=== PATIENT | female | born 1995 | race Caucasian/White ===

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

== ENCOUNTER 2017-01-22 20:39 | Inpatient (IN) | payer MEDICAID ==
[2017-01-22 21:26] LABS: ROM Internal QC QC Line Present
[2017-01-22 21:56] LABS: Hematocrit 33 % (35-47); Hemoglobin 11.3 g/dl (12.0-16.0); Mean Corpuscular HGB Conc 34 g/dl (31-36); Mean Corpuscular Hemoglobin 29 pg (27-31); Mean Corpuscular Volume 83 fL (80-97); Mean Platelet Volume 10 um3 (7.4-10.4); Red Blood Count 3.98 10^6/ul (4.0-5.4); Red Cell Distribution Width 14 % (10.5-15); White Blood Count 15.4 10^3/ul (3.5-10.8)
[2017-01-22] MEDS ORDERED: Nalbuphine* 20 MG/ML 1 ML VIAL IV PRN (23:53)
[2017-01-22] MEDS ORDERED: Nalbuphine* 20 MG/ML 1 ML VIAL ONE (23:53)
[2017-01-22] MEDS ORDERED: Promethazine INJ(RESTRICTED)* 25 MG/ML 1 ML VIAL ONE (23:56)
[2017-01-22] MEDS ORDERED: Promethazine INJ(RESTRICTED)* 25 MG/ML 1 ML VIAL IV PRN (23:56)
[2017-01-23] MEDS ORDERED: OBEPIDURAL* 250 ML ONE (05:19)
[2017-01-23] MEDS ORDERED: Phenylephrine IV* 40 MCG/ML 10 ML SYRINGE IV PUSH PRN ×2 (10:03)
[2017-01-23] MEDS ORDERED: Sodium Citrate/Citric Acid* 15 ML UDC PO PRN (10:03)
[2017-01-23] MEDS ORDERED: Famotidine TAB* 20 MG PO PRN (10:03)
[2017-01-23] MEDS ORDERED: Oxytocin in LR* 20 UNITS/1,000 ML BAG IVPB SCH ×2 (10:05→15:00)
[2017-01-23] MEDS ORDERED: OBEPIDURAL* 250 ML EPIDURAL SCH (11:00)
[2017-01-23] MEDS ORDERED: Witch Hazel PAD* JAR TOPICAL PRN (14:25)
[2017-01-23] MEDS ORDERED: Acetaminophen TAB* 325 MG PO PRN (14:25)
[2017-01-23] MEDS ORDERED: Glycerin ADULT SUPP PR PRN (14:25)
[2017-01-23] MEDS ORDERED: Dibucaine 1% 28.35 GM TUBE PR PRN (14:25)
[2017-01-23] MEDS ORDERED: oxyCODONE/Acetamin 5/325 MG* TAB PO PRN (14:25)
[2017-01-23] MEDS: Ibuprofen TAB* 600 MG PO PRN (16:04)
[2017-01-23] MEDS: Docusate CAP* 100 MG PO SCH (19:57)
[2017-01-23] MEDS: Simethicone CHEW TAB* 80 MG PO SCH (21:14)
[2017-01-24] MEDS: Ibuprofen TAB* 600 MG PO PRN ×2 (07:39→14:30)
[2017-01-24] MEDS: Docusate CAP* 100 MG PO SCH ×3 (07:39→21:01)
[2017-01-24 08:16] LABS: Hematocrit 25 % (35-47); Hemoglobin 8.5 g/dl (12.0-16.0); Mean Corpuscular HGB Conc 33 g/dl (31-36); Mean Corpuscular Hemoglobin 28 pg (27-31); Mean Corpuscular Volume 84 fL (80-97); Mean Platelet Volume 10 um3 (7.4-10.4); Red Blood Count 3.03 10^6/ul (4.0-5.4); Red Cell Distribution Width 14 % (10.5-15); White Blood Count 16.7 10^3/ul (3.5-10.8)
[2017-01-24] MEDS ORDERED: Measles, Mumps,Rubella VACC* 0.5 ML/VIAL SUBCUT ONE (09:00)
[2017-01-24] MEDS ORDERED: Varicella Virus Vaccine Live* 0.5 ML VIAL SUBCUT ONE (09:00)
[2017-01-24] MEDS: Ferrous Gluconate TAB* 324 MG TAB PO SCH ×2 (11:40→21:01)
[2017-01-25] MEDS: Ferrous Gluconate TAB* 324 MG TAB PO SCH (08:27)
[2017-01-25] MEDS: Docusate CAP* 100 MG PO SCH (08:27)
[2017-01-25] MEDS: Ibuprofen TAB* 600 MG PO PRN (08:27)
--- NOTE | 2017-01-25 09:00 | PTEDU ---
Patient Name: CHIARA VELÁSQUEZ VELÁSQUEZ, CHIARA selected video: BBOB: Bonding Through Massage to view on 01/25/2017 at 9:00:01 AM from [id number]
[2017-01-25 09:31] VITALS: BP 140/78
--- NOTE | 2017-01-25 09:49 | PTEDU ---
Patient Name: CHIARA VELÁSQUEZ CHIARA VELÁSQUEZ selected video: Never Ever Shake a Baby to view on 01/25/2017 at 9:48:19 AM from [facility] [id number]
--- NOTE | 2017-01-25 09:58 | PTEDU ---
Patient Name: CHIARA VELÁSQUEZ CHIARA VELÁSQUEZ selected video: BBOB: Nurturing Your Gorgeous \T\Growing Baby by to view on 01/25/2017 at 9:58:35 AM [id number]
== END 2017-01-25 12:40 | disposition home or self-care (01) | DRG 560 ==
LOC: MCHOBOUT 20:39 → MCHOB 21:35
PROVIDERS: ADMIT Midwife; ATTEND Midwife
PROC: 10E0XZZ Delivery of Products of Conception, External Approach (ICD-10-PCS; principal; 2017-01-23)
PROC: 0HQ9XZZ Repair Perineum Skin, External Approach (ICD-10-PCS; 2017-01-23)
DX: O99.824 Streptococcus B carrier state complicating childbirth (principal); D64.9 Anemia, unspecified; O70.0 First degree perineal laceration during delivery; O69.9XX0 Labor and delivery complicated by cord complication, unspecified, not applicable or unspecified; O90.81 Anemia of the puerperium; Z3A.38 38 weeks gestation of pregnancy; Z37.0 Single live birth
CPT/HCPCS: 36415; 84112; 85025; 86850; 86900; 86901; A9270-GY; J2300; J2550

== ENCOUNTER 2017-05-01 00:17 | Emergency (ER) | payer OTHER ==
--- NOTE | 2017-05-01 02:26 | ED ---
Upper Extremity Pain - HPI Summary HPI Summary: 21F presents with left wrist pain for two weeks. She states that she is left handed. It is worst with flexion. She states that she gets pain that limits her ROM. She denies any injury. no numbness or tingling. She has tried ibuprofen without relief. She lifts alot of things at work. - History of Current Complaint Chief Complaint: EDExtremityUpper Stated Complaint: LT WRIST PAIN Time Seen by Provider: 05/01/17 01:10 Hx Last Menstrual Period: 03/06/14 - Allergies/Home Medications Allergies/Adverse Reactions: Allergies Allergy/AdvReac Type Severity Reaction Status Date / Time Latex Allergy Intermediate Rash Verified 11/27/16 07:05 PMH/Surg Hx/FS Hx/Imm Hx Endocrine/Hematology History: Denies: Hx Diabetes, Hx Systemic Lupus Erythematosus, Hx Thyroid Disease Cardiovascular History: Denies: Hx Congestive Heart Failure, Hx Hypertension Respiratory History: Denies: Hx Asthma, Hx Chronic Obstructive Pulmonary Disease (COPD) GI History: Denies: Hx Ulcer History: Denies: Hx Dialysis, Hx Renal Disease Musculoskeletal History: Denies: Hx Rheumatoid Arthritis Sensory History: Reports: Hx Contacts or Glasses Opthamlomology History: Reports: Hx Contacts or Glasses Psychiatric History: Reports: Hx Anxiety, Hx Depression, Hx Post Traumatic Stress Disorder, Hx Community Mental Health Tx Denies: Hx Eating Disorder, Hx of Violent Episodes Against Others, Hx Substance Abuse - Cancer History Hx Chemotherapy: No Infectious Disease History: No Infectious Disease History: Denies: Hx Clostridium Difficile, Hx Hepatitis, Hx Human Immunodeficiency Virus (HIV), Hx of Known/Suspected MRSA, Hx Tuberculosis, Hx Known/Suspected VRE , Hx Known/Suspected VRSA, History Other Infectious Disease, Traveled Outside the [place] in Last 30 Days - Family History Known Family History: Negative: Cardiac Disease - Social History Alcohol Use: None Substance Use Type: Reports: None Smoking Status (MU): Never Smoked Tobacco Review of Systems Negative: Fever Negative: Chest Pain Negative: Shortness Of Breath Positive: Myalgia - left wrist pain All Other Systems Reviewed And Are Negative: Yes Physical Exam Triage Information Reviewed: Yes Vital Signs On Initial Exam: Initial Vitals Temp Pulse Resp BP Pulse Ox 97.5 F 112 16 135/70 100 05/01/17 00:28 05/01/17 00:28 05/01/17 00:28 05/01/17 00:28 05/01/17 00:28 Vital Signs Reviewed: Yes Appearance: Positive: Well-Appearing Skin: Positive: Warm, Dry Head/Face: Positive: Normal Head/Face Inspection Eyes: Positive: Normal, Conjunctiva Clear Respiratory/Lung Sounds: Positive: Clear to Auscultation, Breath Sounds Present Cardiovascular: Positive: Normal, RRR Musculoskeletal: Positive: Strength/ROM Intact - left wrist with pain, Other - good pulses, capillary refill< 2 secs, no edema Diagnostics - Vital Signs Vital Signs Temp Pulse Resp BP Pulse Ox 05/01/17 01:27 97.7 F 89 16 123/64 100 05/01/17 00:28 97.5 F 112 16 135/70 100 - Laboratory Lab Statement: Any lab studies that have been ordered have been reviewed, and results considered in the medical decision making process. - Radiology hand Xray Interpretation: No Acute Changes Radiology Interpretation Completed By: ED Physician Course/Dx - Course Course Of Treatment: 21F presents with left wrist pain for two weeks. She states that she is left handed. It is worst with flexion. She states that she gets pain that limits her ROM. She denies any injury. no numbness or tingling. She has tried ibuprofen without relief. has full ROM on exam. neurovascular intact. xray normal. tried splint but patient says that feels more uncomfortable so placed in ALEX. told to treat with RICE as likely sprain. patient understands and agrees with plan - Diagnoses Differential Diagnosis/HQI/PQRI: Positive: Fracture (Closed), Strain, Sprain Provider Diagnoses: Wrist pain Discharge - Discharge Plan Condition: Good Disposition: HOME Patient Education Materials: Wrist Sprain (ED) Referrals: Madelaine Martin NP [Primary Care Provider] - Additional Instructions: Take ibuprofen every 6 hours as needed for pain Apply ice, rest, elevate Follow up with primary care physician within 5 days Return to ED if develop any new or worsening symptoms
[2017-05-01 03:11] VITALS: BP 117/59
--- NOTE | 2017-05-01 07:57 | RAD ---
INDICATION: Left wrist pain. TECHNIQUE: 3 views of the left wrist were obtained. FINDINGS: There is ulnar minus variance of approximately 4 mm. The bones are otherwise in normal alignment. No fracture is seen. Joint spaces appear maintained. IMPRESSION: NO EVIDENCE FOR FRACTURE.
== END 2017-05-01 02:45 | disposition home or self-care (01) ==
LOC: ED 00:17
DX: M25.532 Pain in left wrist (principal)
CPT/HCPCS: 99282

== ENCOUNTER 2017-08-19 19:35 | Emergency (ER) | payer OTHER ==
--- NOTE | 2017-08-19 21:40 | RAD ---
INDICATION: Cough and shortness of breath COMPARISON: None TECHNIQUE: PA and lateral views of the chest were obtained. FINDINGS: The heart and mediastinum are normal in size and contour. The lungs are grossly clear. There is no evidence of large pleural effusion. Visualized bones are normal for the patient's age. There is no radiographic evidence of free air beneath the diaphragm IMPRESSION: No radiographic evidence of acute cardiopulmonary disease.
[2017-08-19 22:12] LABS: Hematocrit 40 % (35-47); Hemoglobin 13.6 g/dl (12.0-16.0); Mean Corpuscular HGB Conc 34 g/dl (31-36); Mean Corpuscular Hemoglobin 29 pg (27-31); Mean Corpuscular Volume 85 fL (80-97); Mean Platelet Volume 8 um3 (7.4-10.4); Red Blood Count 4.69 10^6/ul (4.0-5.4); Red Cell Distribution Width 12 % (10.5-15); White Blood Count 12.7 10^3/ul (3.5-10.8)
[2017-08-19 22:27] LABS: ALT 54 U/L (7-52); AST 24 U/L (13-39); Albumin 4.6 g/dL (3.2-5.2); Alkaline Phosphatase 64 U/L (34-104); Anion Gap 7 mmol/L (2-11); BUN/Creatinine Ratio 25.4 (8-20); Blood Urea Nitrogen 17 mg/dL (6-24); C Reactive Protein 1.15 mg/L (< 5.00); CO2 Carbon Dioxide 24 mmol/L (22-32); Chloride 105 mmol/L (101-111); EGFR African American 145.8 (>60); EGFR Non-African American 113.4 (>60); Glucose 97 mg/dL (70-100); Potassium 3.8 mmol/L (3.5-5.0); Sodium 136 mmol/L (133-145); Total Protein 7.6 g/dL (6.4-8.9)
[2017-08-19 22:40] VITALS: BP 109/61
--- NOTE | 2017-08-20 13:18 | ED ---
Dior Jamison Thomas, scribed for Daniel Miles MD on 08/19/17 at 2130 . HPI Chest Pain - HPI Summary HPI Summary: This patient is a 21 year old F presenting to [facility] accompanied by a male with a chief complaints of shortness of breath and chest tightness since two hours ago. Symptoms aggravated by nothing. Symptoms alleviated by nothing. Yesterday, the patient reported headaches, vomiting, and nausea that were waxing and waning. The patient was put on a beta neto this morning. The patient usually has sharp migraines that radiate throughout her head and to her eyes. Patient reports palpitations. Patient denies leg swelling. She says that she visited a city three [place] away on . The patient is a current smoker. She is taking Mirena. - History of Current Complaint Chief Complaint: EDShortnessOfBreath Time Seen by Provider: 08/19/17 20:32 Hx Obtained From: Patient Onset/Duration: Started Hours Ago - 2, Still Present Timing: Constant Pain Intensity: 0 Pain Scale Used: 0-10 Numeric Character: Tightness Aggravating Factor(s): Nothing Alleviating Factor(s): Nothing Associated Signs and Symptoms: Positive: Other: - Chest tightness, SOB, heart palpitations; NEGATIVE: leg swelling - Allergy/Home Medications Allergies/Adverse Reactions: Allergies Allergy/AdvReac Type Severity Reaction Status Date / Time Latex Allergy Intermediate Rash Verified 11/27/16 07:05 PMH/Surg Hx/FS Hx/Imm Hx Previously Healthy: No Endocrine/Hematology History: Denies: Hx Diabetes, Hx Systemic Lupus Erythematosus, Hx Thyroid Disease Cardiovascular History: Denies: Hx Congestive Heart Failure, Hx Hypertension Respiratory History: Denies: Hx Asthma, Hx Chronic Obstructive Pulmonary Disease (COPD) GI History: Denies: Hx Ulcer History: Denies: Hx Dialysis, Hx Renal Disease Musculoskeletal History: Denies: Hx Rheumatoid Arthritis Sensory History: Reports: Hx Contacts or Glasses Opthamlomology History: Reports: Hx Contacts or Glasses Psychiatric History: Reports: Hx Anxiety, Hx Depression, Hx Post Traumatic Stress Disorder, Hx Community Mental Health Tx Denies: Hx Eating Disorder, Hx of Violent Episodes Against Others, Hx Substance Abuse - Cancer History Hx Chemotherapy: No Infectious Disease History: No Infectious Disease History: Denies: Hx Clostridium Difficile, Hx Hepatitis, Hx Human Immunodeficiency Virus (HIV), Hx of Known/Suspected MRSA, Hx Tuberculosis, Hx Known/Suspected VRE , Hx Known/Suspected VRSA, History Other Infectious Disease, Traveled Outside the [place] in Last 30 Days - Family History Known Family History: Positive: Other - Cancer Negative: Cardiac Disease - Social History Alcohol Use: None Hx Substance Use: No Substance Use Type: Reports: None Hx Tobacco Use: Yes Smoking Status (MU): Light Every Day Tobacco Smoker Review of Systems Negative: Fever Positive: Palpitations, Chest Pain Positive: Shortness Of Breath Negative: Edema All Other Systems Reviewed And Are Negative: Yes Physical Exam - Summary Physical Exam Summary: Appearance: The patient is well-nourished in no acute distress and in no acute pain. Skin: The skin is warm and dry and skin color reflects adequate perfusion. HEENT: The head is normocephalic and atraumatic. The pupils are equal and reactive. The conjunctivae are clear and without drainage. Nares are patent and without drainage. Mouth reveals moist mucous membranes and the throat is without erythema and exudate. The external ears are intact. The ear canals are patent and without drainage. The tympanic membranes are intact. Neck: the neck is supple with full range of motion and non-tender. There are no carotid bruits. There is no neck vein distension. Respiratory: Chest is non-tender. Lungs are clear to auscultation and breath sounds are symmetrical and equal. Cardiovascular: Heart is regular rate and rhythm. There is no murmur or rub auscultated. There is no peripheral edema and pulses are symmetrical and equal. Abdomen: The abdomen is soft and non-tender. There are normal bowel sounds heard in all four quadrants and there is no organomegaly palpated. Musculoskeletal: There is no back tenderness noted. Extremities are non-tender with full range of motion. There is good capillary refill. There is no peripheral edema or calf tenderness elicited. Neurological: Patient is alert and oriented to person, place and time. The patient has symmetrical motor strength in all four extremities. Cranial nerves are grossly intact. Deep tendon reflexes are symmetrical and equal in all four extremities. Psychiatric: The patient has an appropriate affect and does not exhibit any depression. She is anxious. Triage Information Reviewed: Yes Vital Signs On Initial Exam: Initial Vitals Temp Pulse Resp BP Pulse Ox 98.8 F 94 18 121/67 99 08/19/17 19:48 08/19/17 19:48 08/19/17 19:48 08/19/17 19:48 08/19/17 19:48 Vital Signs Reviewed: Yes - Zena Coma Scale Coma Scale Total: 15 Diagnostics - Vital Signs Vital Signs Temp Pulse Resp BP Pulse Ox 08/19/17 20:42 71 100 08/19/17 20:40 116/67 08/19/17 19:48 98.8 F 94 18 121/67 99 - Laboratory Lab Results: Lab Results 08/19/17 08/19/17 08/19/17 Range/Units 22:05 22:05 22:05 WBC 12.7 H (3.5-10.8) 10^3/ul RBC 4.69 (4.0-5.4) 10^6/ul Hgb 13.6 (12.0-16.0) g/dl Hct 40 (35-47) % MCV 85 (80-97) fL MCH 29 (27-31) pg MCHC 34 (31-36) g/dl RDW 12 (10.5-15) % Plt Count 308 (150-450) 10^3/ul MPV 8 (7.4-10.4) um3 Neut % (Auto) 62.4 (38-83) % Lymph % (Auto) 24.5 L (25-47) % [place] % (Auto) 7.2 (1-9) % Eos % (Auto) 5.2 (0-6) % Baso % (Auto) 0.7 (0-2) % Absolute Neuts (auto) 7.9 H (1.5-7.7) 10^3/ul Absolute Lymphs (auto) 3.1 (1.0-4.8) 10^3/ul Absolute Monos (auto) 0.9 H (0-0.8) 10^3/ul Absolute Eos (auto) 0.7 H (0-0.6) 10^3/ul Absolute Basos (auto) 0.1 (0-0.2) 10^3/ul Absolute Nucleated RBC 0 10^3/ul Nucleated RBC % 0 D-Dimer, Quantitative (Less Than 230) ng/mL Sodium 136 (133-145) mmol/L Potassium 3.8 (3.5-5.0) mmol/L Chloride 105 (101-111) mmol/L Carbon Dioxide 24 (22-32) mmol/L Anion Gap 7 (2-11) mmol/L BUN 17 (6-24) mg/dL Creatinine 0.67 (0.51-0.95) mg/dL Est GFR ( Amer) 145.8 (>60) Est GFR (Non-Af Amer) 113.4 (>60) BUN/Creatinine Ratio 25.4 H (8-20) Glucose 97 (70-100) mg/dL Lactic Acid 1.0 (0.5-2.0) mmol/L Calcium 10.0 (8.6-10.3) mg/dL Total Bilirubin 0.30 (0.2-1.0) mg/dL AST 24 (13-39) U/L ALT 54 H (7-52) U/L Alkaline Phosphatase 64 (34-104) U/L Troponin I 0.00 (<0.04) ng/mL C-Reactive Protein 1.15 (< 5.00) mg/L Total Protein 7.6 (6.4-8.9) g/dL Albumin 4.6 (3.2-5.2) g/dL Globulin 3.0 (2-4) g/dL Albumin/Globulin Ratio 1.5 (1-3) Beta HCG, Quant < 0.60 mIU/mL /18/17 Range/Units 22:05 WBC (3.5-10.8) 10^3/ul RBC (4.0-5.4) 10^6/ul Hgb (12.0-16.0) g/dl Hct (35-47) % MCV (80-97) fL MCH (27-31) pg MCHC (31-36) g/dl RDW (10.5-15) % Plt Count (150-450) 10^3/ul MPV (7.4-10.4) um3 Neut % (Auto) (38-83) % Lymph % (Auto) (25-47) % [place] % (Auto) (1-9) % Eos % (Auto) (0-6) % Baso % (Auto) (0-2) % Absolute Neuts (auto) (1.5-7.7) 10^3/ul Absolute Lymphs (auto) (1.0-4.8) 10^3/ul Absolute Monos (auto) (0-0.8) 10^3/ul Absolute Eos (auto) (0-0.6) 10^3/ul Absolute Basos (auto) (0-0.2) 10^3/ul Absolute Nucleated RBC 10^3/ul Nucleated RBC % D-Dimer, Quantitative < 200 (Less Than 230) ng/mL Sodium (133-145) mmol/L Potassium (3.5-5.0) mmol/L Chloride (101-111) mmol/L Carbon Dioxide (22-32) mmol/L Anion Gap (2-11) mmol/L BUN (6-24) mg/dL Creatinine (0.51-0.95) mg/dL Est GFR ( Amer) (>60) Est GFR (Non-Af Amer) (>60) BUN/Creatinine Ratio (8-20) Glucose (70-100) mg/dL Lactic Acid (0.5-2.0) mmol/L Calcium (8.6-10.3) mg/dL Total Bilirubin (0.2-1.0) mg/dL AST (13-39) U/L ALT (7-52) U/L Alkaline Phosphatase (34-104) U/L Troponin I (<0.04) ng/mL C-Reactive Protein (< 5.00) mg/L Total Protein (6.4-8.9) g/dL Albumin (3.2-5.2) g/dL Globulin (2-4) g/dL Albumin/Globulin Ratio (1-3) Beta HCG, Quant mIU/mL Result Diagrams: 08/19/17 22:05 08/19/17 22:05 Lab Statement: Any lab studies that have been ordered have been reviewed, and results considered in the medical decision making process. - Radiology CXR Radiology Interpretation Completed By: Radiologist - No radiographic evidence of acute cardiopulmonary disease. ED physician has reviewed this report and agrees. - EKG 21:39 Cardiac Rate: NL EKG Interpretation: 80 BPM. Nml EKG. Sinus arrhythmia. Chest Pain Course/Dx - Course Course Of Treatment: Ms. Cervantes presented C/O some difficulty breathing and chest tightness after beiing started on a beta neto. It is unclear why she was started although she says she has a history of untreated migraines and has daily HAs and that may be why. She had no wheezing and normal vitals. I recommended if she continue with symptoms, she should talk to her PMD as the beta neto may be causing some mild bronchospasm. I'm not sure why she was prescribed it so I didn't recommend stopping it outright. - Diagnoses Provider Diagnoses: Dyspnea Discharge - Discharge Plan Condition: Stable Disposition: HOME Patient Education Materials: Dyspnea (ED) Forms: *Work Release Referrals: Madelaine Martin NP [Primary Care Provider] - 3 Days Additional Instructions: Follow up with your primary care provider in 3 days. Return to the emergency department for any new or worsening symptoms. The documentation as recorded by the Dior chaves Thomas accurately reflects the service I personally performed and the decisions made by me, Daniel Miles MD.
== END 2017-08-19 23:29 | disposition home or self-care (01) ==
LOC: ED 19:35
DX: R00.2 Palpitations (principal); R06.00 Dyspnea, unspecified; R07.9 Chest pain, unspecified; R06.02 Shortness of breath; F17.210 Nicotine dependence, cigarettes, uncomplicated
CPT/HCPCS: 36415; 71020; 80053; 83605; 84484; 84702; 85025; 85379; 86140; 93005; 99283

== ENCOUNTER 2017-08-21 01:17 | Emergency (ER) | payer OTHER ==
[2017-08-21] MEDS ORDERED: NS 0.9% 1000 ML* 1,000 ML IV ONE (01:38)
[2017-08-21] MEDS ORDERED: LORazepam INJ* 2 MG/ML 1 ML VIAL IV PUSH ONE (01:39)
[2017-08-21 02:05] LABS: Hematocrit 41 % (35-47); Mean Corpuscular HGB Conc 34 g/dl (31-36); Mean Corpuscular Hemoglobin 29 pg (27-31); Mean Corpuscular Volume 84 fL (80-97); Mean Platelet Volume 9 um3 (7.4-10.4); Red Blood Count 4.87 10^6/ul (4.0-5.4); Red Cell Distribution Width 13 % (10.5-15); White Blood Count 13.3 10^3/ul (3.5-10.8)
[2017-08-21 02:21] LABS: Albumin 4.6 g/dL (3.2-5.2); BUN/Creatinine Ratio 25.7 (8-20); Calcium 9.7 mg/dL (8.6-10.3); EGFR African American 138.6 (>60); EGFR Non-African American 107.8 (>60); Globulin 2.7 g/dL (2-4); Potassium 3.5 mmol/L (3.5-5.0); Total Bilirubin 0.3 mg/dL (0.2-1.0); Total Protein 7.3 g/dL (6.4-8.9)
--- NOTE | 2017-08-21 02:34 | ED ---
Dior Jamison Thomas, scribed for Panfilo Oglesby MD on 08/21/17 at 0206 . Shortness of Breath - HPI Summary HPI Summary: The pt is a 21 y/o F presenting to the ED c/o SOB starting two days ago after being prescribed Metoprolol. The patient was seen at [facility] ED two days ago with an extensive workup, and previous documentation was reviewed. The patient was diagnosed with hyperthyroidism two days ago. Pt additionally c/o throat pain and sharp CP. She has also been dealing with headaches and insomnia for the last few months. Pt denies a history anxiety and panic attacks. - History of Current Complaint Chief Complaint: EDUpperRespComplaint Time Seen by Provider: 08/21/17 01:28 Hx Obtained From: Patient Onset/Duration: Lasting Days - two days Timing: Constant - for two days Current Severity: Mild Aggrevating Factors: Deep Breaths Alleviating Factors: Nothing Associated Signs & Symptoms: Chest Pain Unrelated to Cough - Allergy/Home Medications Allergies/Adverse Reactions: Allergies Allergy/AdvReac Type Severity Reaction Status Date / Time Latex Allergy Intermediate Rash Verified 08/21/17 01:23 PMH/Surg Hx/FS Hx/Imm Hx Previously Healthy: No Endocrine/Hematology History: Denies: Hx Diabetes, Hx Systemic Lupus Erythematosus, Hx Thyroid Disease Cardiovascular History: Denies: Hx Congestive Heart Failure, Hx Hypertension Respiratory History: Denies: Hx Asthma, Hx Chronic Obstructive Pulmonary Disease (COPD) GI History: Denies: Hx Ulcer History: Denies: Hx Dialysis, Hx Renal Disease Musculoskeletal History: Denies: Hx Rheumatoid Arthritis Sensory History: Reports: Hx Contacts or Glasses Opthamlomology History: Reports: Hx Contacts or Glasses Psychiatric History: Reports: Hx Anxiety, Hx Depression, Hx Post Traumatic Stress Disorder, Hx Community Mental Health Tx Denies: Hx Eating Disorder, Hx of Violent Episodes Against Others, Hx Substance Abuse - Cancer History Hx Chemotherapy: No Infectious Disease History: No Infectious Disease History: Denies: Hx Clostridium Difficile, Hx Hepatitis, Hx Human Immunodeficiency Virus (HIV), Hx of Known/Suspected MRSA, Hx Tuberculosis, Hx Known/Suspected VRE , Hx Known/Suspected VRSA, History Other Infectious Disease, Traveled Outside the [place] in Last 30 Days - Family History Known Family History: Positive: Other - Cancer Negative: Cardiac Disease - Social History Occupation: Employed Full-time - works at [employer] Lives: With Family - with domestic male partner Alcohol Use: None Hx Substance Use: No Substance Use Type: Reports: None Hx Tobacco Use: Yes Smoking Status (MU): Light Every Day Tobacco Smoker Review of Systems Positive: Sore Throat Positive: Chest Pain Positive: Shortness Of Breath Negative: Anxious, Other - panic attacks All Other Systems Reviewed And Are Negative: Yes Physical Exam - Summary Physical Exam Summary: VITAL SIGNS: Reviewed. GENERAL: Patient is a well-developed and nourished female who is lying comfortable in the stretcher. Patient is not in any acute respiratory distress. HEAD AND FACE: No signs of trauma. No ecchymosis, hematomas or skull depressions. No sinus tenderness. EYES: PERRLA, EOMI x 2, No injected conjunctiva, no nystagmus. EARS: Hearing grossly intact. Ear canals and tympanic membranes are within normal limits. MOUTH: Oropharynx within normal limits. NECK: Supple, trachea is midline, no adenopathy, no JVD, no carotid bruit, no c- spine tenderness, neck with full ROM. CHEST: Symmetric, no tenderness at palpation LUNGS: Clear to auscultation bilaterally. No wheezing or crackles. CVS: Regular rate and rhythm, S1 and S2 present, no murmurs or gallops appreciated. ABDOMEN: Soft, non-tender. No signs of distention. No rebound no guarding, and no masses palpated. Bowel sounds are normal. EXTREMITIES: FROM in all major joints, no edema, no cyanosis or clubbing. NEURO: Alert and oriented x 3. No acute neurological deficits. Speech is normal and follows commands. SKIN: Dry and warm PSYCHIATRIC: She is anxious. Triage Information Reviewed: Yes Vital Signs On Initial Exam: Initial Vitals Temp Pulse Resp BP Pulse Ox 97.5 F 80 16 131/68 100 08/21/17 01:20 08/21/17 01:20 08/21/17 01:20 08/21/17 01:20 08/21/17 01:20 Vital Signs Reviewed: Yes - [place] Coma Scale Coma Scale Total: 15 Diagnostics - Vital Signs Vital Signs Temp Pulse Resp BP Pulse Ox 08/21/17 01:20 97.5 F 80 16 131/68 100 - Laboratory Result Diagrams: 08/21/17 01:50 Lab Statement: Any lab studies that have been ordered have been reviewed, and results considered in the medical decision making process. Re-Evaluation - Re-Evaluation First Eval Re-Evaluation Time: 02:20 Change: Improved Comment: The patient's symptoms have improved with Ativan. Course/Dx - Course Assessment/Plan: The pt is a 21 y/o F presenting to the ED c/o SOB starting two days ago after being prescribed Metoprolol. The patient was seen at [facility] ED two days ago with an extensive workup, and previous documentation was reviewed. The patient was diagnosed with hyperthyroidism two days ago. Pt additionally c/o throat pain and sharp CP. She has also been dealing with headaches and insomnia for the last few months. Pt denies a history anxiety and panic attacks. The patient's symptoms have improved with Ativan. The patient is calm. The patient s symptoms are most likely secondary to hyperthyroidism. The patient will be diagnosed with anxiety and hyperthyroidism. - Diagnoses Provider Diagnoses: Anxiety, Hyperthyroidism Discharge - Discharge Plan Condition: Stable Disposition: HOME Referrals: Madelaine Martin, [employer] [Primary Care Provider] - 3 Days The documentation as recorded by the Dior chaves Thomas accurately reflects the service I personally performed and the decisions made by me, Panfilo Oglesby MD.
[2017-08-21 02:56] VITALS: BP 126/61
== END 2017-08-21 02:55 | disposition home or self-care (01) ==
LOC: ED 01:17
DX: F41.9 Anxiety disorder, unspecified (principal); E05.90 Thyrotoxicosis, unspecified without thyrotoxic crisis or storm; F32.9 Major depressive disorder, single episode, unspecified; F43.10 Post-traumatic stress disorder, unspecified; Z72.0 Tobacco use
CPT/HCPCS: 36415; 80053; 85025; 96360; 96374; 99282; J2060

== ENCOUNTER 2019-01-21 00:18 | Inpatient (IN) | payer OTHER ==
[2019-01-21] MEDS ORDERED: Lactated Ringers 1000 ML Bag* 1,000 ML IV ONE ×2 (00:47→01:55)
[2019-01-21] MEDS ORDERED: Penicillin G Potassium IV* 5,000,000 UNITS in NS 0.9% 100 ML* 100 ML IVPB ONE (00:47)
[2019-01-21] MEDS ORDERED: Buffered Lidocaine 1% SYRIN* 1 ML/SYRINGE INTRADERM ONE (00:47)
[2019-01-21 00:55] LABS: Hematocrit 32 % (33-41); Hemoglobin 10.9 g/dL (12.0-16.0); Mean Corpuscular HGB Conc 34 g/dL (31-36); Mean Corpuscular Hemoglobin 29 pg (27-31); Mean Corpuscular Volume 85 fL (80-97); Mean Platelet Volume 9.1 fL (7.4-10.4); Platelet Count 277 10^3/uL (150-450); Red Blood Count 3.79 10^6 /uL (3.70-4.87); Red Cell Distribution Width 13 % (10.5-15); White Blood Count 17.4 10^3/uL (3.5-10.8)
[2019-01-21] MEDS ORDERED: Lactated Ringers 1000 ML Bag* 1,000 ML IV SCH ×3 (01:00→04:00)
--- NOTE | 2019-01-21 01:00 | HP ---
General Information - Reason for Visit Pt reports ctx starting a few hours ago, stronger since 2300. Possible leaking of clear fluid. - General Information Maternal Age: 23 Grav: 2 Para: 1 SAB: 0 IEA: 0 Estimated Due Date: 01/23/19 Determined By: LMP Maternal Blood Type and Rh: A Positive - Results this Serology/RPR Result: Non-Reactive Rubella Result: Immune HBsAg Result: Negative HIV Result: Negative GBS Culture Result: Positive Past Medical History Pertinent Past Medical History: See Records - migraines, depression/ anxiety Pertinent Past Surgical History: None Pertinent Family History: Non-Contributory - Antepartal Records Antepartal Records: Reviewed, Uncomplicated - varicella nonimmune, GBS positive Review of Systems Constitutional: Uncomfortable CV Complaint: No Respiratory: Shortness of Breath: No Gastrointestinal: No Nausea/Vomiting, Normal Bowel Movement Genitourinary: Leaking Fluid - possibly, although bag felt on vaginal exam, No Dysuria, No Bleeding Musculoskeletal: No Epigastric Pain, Contractions Neurological: No Headache, No Visual Changes Movement: Normal Exam Allergies/Adverse Reactions: Allergies latex Allergy (Verified 01/21/19 00:49) Rash T-97.0, P-78, R-19, BP- 118/94, 99% - Measurements Height: 5 ft 2 in Weight: 77.111 kg Weight in lbs: 170.299659 Body Mass Index (BMI): 31.1 Pre- Weight: 78.925 kg Weight Gained This : -4.000 lbs and -0.001 ozs - Exam Breast: Breast Exam Deferred CVA: No CVA Tenderness Extremities: No Edema Heart: Normal Rhythm/Heart Sounds HEENT: No Significant Findings Lungs: Clear Bilaterally Rectal: Rectal Exam Deferred Reflexes: DTR 2+ Thyroid: No Thyromegaly - Abdominal Exam Abdomen Exam: Non-Tender, Fundal Height Consistent with Dates - Ultrasound/Biophysical Profile Ultrasound Status: Not Done Targeted Exam Findings See L&D Outpatient Visit Provider Note for Findings: N/A Estimated Weight: 8# Cervical Exam: 5cm Effacement: 100% Station: 0 Presenting Part: Vertex Membrane Status: Bulging Bleeding/Discharge: None EFM Findings - External Monitor Findings Baseline Heart Rate: 120 External Monitor Findings: Accelerations Present, No Pattern of Variable or Late Decelerations, Variability Moderate, Baseline Stable Contractions: Regular Contraction Frequency: 2-3 Assessment/Plan - Assessment 23 year old in active labor, membranes intact, GBS positive, at 39 5/7 weeks gestation, no evidence of acidemia - Obstetrical Risk Factors Obstetrical Risk Factors: GBS Positive - Plan Plan: Admit - Anticipate Vaginal Delivery Plan Comment: Pt requested epidural. Dr. Kim notified, and is on his way. - Date/Time of Admission Date of Admission: 01/21/19 Time of Admission: 00:40
[2019-01-21] MEDS ORDERED: OBEPIDURAL* 250 ML EPIDURAL ONE (01:12)
[2019-01-21] MEDS ORDERED: Phenylephrine 40 MCG/ML SYRINGE IV PUSH PRN ×2 (01:55)
[2019-01-21] MEDS ORDERED: Famotidine TAB* 20 MG PO PRN (01:55)
[2019-01-21] MEDS ORDERED: Sodium Citrate/Citric Acid* 15 ML UDC PO PRN (01:55)
[2019-01-21] MEDS ORDERED: EPHEDrine (Pressors)* 50 MG/ML VIAL IV PUSH PRN ×2 (01:55)
[2019-01-21] MEDS ORDERED: OBEPIDURAL* 250 ML EPIDURAL SCH (02:00)
[2019-01-21] MEDS ORDERED: Oxytocin in LR* 20 UNITS/1,000 ML BAG IVPB ONE (02:28)
[2019-01-21] MEDS ORDERED: Glycerin ADULT SUPP PR PRN (03:30)
[2019-01-21] MEDS ORDERED: Witch Hazel PAD* JAR TOPICAL PRN (03:30)
[2019-01-21] MEDS ORDERED: Varicella Virus Vaccine Live* 0.5 ML VIAL SUBCUT ONE (03:30)
[2019-01-21] MEDS ORDERED: Dibucaine 1% 28.35 GM TUBE PR PRN (03:30)
[2019-01-21] MEDS ORDERED: Misoprostol TAB* 200 MCG PR ONE (03:30)
[2019-01-21] MEDS ORDERED: Oxytocin in LR* 20 UNITS/1,000 ML BAG IVPB SCH (04:00)
[2019-01-21] MEDS ORDERED: Methylergonovine INJ* 0.2 MG/ML 1ML AMP IM ONE (04:07)
--- NOTE | 2019-01-21 04:31 | PN ---
Progress Note - Progress Note Date of Service: 01/21/19
[2019-01-21] MEDS ORDERED: Penicillin G Potassium IV* 2,500,000 UNITS in NS 0.9% 100 ML* 100 ML IVPB SCH (05:00)
[2019-01-21] MEDS: Ibuprofen TAB* 600 MG PO PRN ×3 (06:13→18:23)
[2019-01-21 09:23] LABS: Hematocrit 28 % (33-41); Hemoglobin 9.2 g/dL (12.0-16.0); Mean Corpuscular HGB Conc 34 g/dL (31-36); Mean Corpuscular Hemoglobin 29 pg (27-31); Mean Corpuscular Volume 85 fL (80-97); Platelet Count 229 10^3/uL (150-450); Red Blood Count 3.22 10^6 /uL (3.70-4.87); Red Cell Distribution Width 13 % (10.5-15); White Blood Count 25.9 10^3/uL (3.5-10.8)
--- NOTE | 2019-01-21 09:24 | PROCNOTE ---
[facility] OB: Delivery Note - Delivery A Date of : 01/21/19 Time of : 02:48 [place] Sex: Female Weight at : 3.487 kg Score 1 Minute: 9 Score 5 Minutes: 9 Gestational Age in Weeks and Days at Delivery: 39 Weeks and 5 Days Delivery Method: Spontaneous Vaginal Labor: Spontaneous Amniotic Fluid: Clear Estimated Blood Loss: 700 Anesthesia/Analgesia: CEI for Labor Delivered By: Shania Marvin Nursery Level of Nursery: Regular/Bedside - Perineum Perineal Injury: Abrasion Only - Not Repaired - Events Delivery Events of Note: Full Course of Antibiotics, Post- Bleeding - Meds Given - Risk for Falls Delivered OB Patient- Risk for Falls: Heavy Bleeding Fall Risk: Patient is at High Risk for Falls - Additional Delivery Notes Additional Delivery Notes: Pt arrived on Labor and Delivery in spontaneous labor at full term. Antibiotic prophylaxis was initiated as she was GBS positive. She requested and received a labor epidural for pain relief, which provided good relief. Labor progressed quickly until pt was bearing down uncontrollably and found to be fully dilated, at which time decision made to perform AROM, with pt's consent. Pt then began to push spontaneously and with good effort. Pt pushed effectively and soon brought infant's head to . Pt coached through slow, controlled delivery of the head. Infant somersaulted through nuchal cord and placed on maternal abdomen with good tone and spontaneous cry, HR> 100. Placenta soon followed with gentle cord traction, spontaneous and saran, at which time Pitocin was initiated at 250 cc/ hr. Initial bleeding remained brisk, even after clots were expressed, but resolved with misoprostol and fundal massage. Inspection of the perineum revealed only a very small perineal abrasion, not repaired. About 1 hour after delivery I was called back to room by RN. Pt had passed another large gush of blood. Large amount of clots expressed and methergine administered , after which bleeding has been minimal. Infant bottle feeding. Will monitor pt for anemia, otherwise anticipate normal course.
[2019-01-21] MEDS: Ferrous Gluconate TAB* 324 MG TAB PO SCH (10:02)
[2019-01-21] MEDS: Docusate CAP* 100 MG PO SCH ×2 (10:02→13:48)
[2019-01-21] MEDS: Acetaminophen TAB* 325 MG PO PRN ×3 (10:02→18:23)
[2019-01-21 10:52] LABS: ABS Basophils 0.1 10^3/ul (0-0.2); ABS Eosinophils 0 10^3/ul (0-0.6); ABS Lymphocytes 2.3 10^3/ul (1.0-4.8); ABS Monocytes 1.3 10^3/ul (0-0.8); ABS Neutrophils 22.1 10^3/ul (1.5-7.7); ABS Nucleated RBC 0 10^3/ul; Eosinophil % 0.2 %; Lymphocyte % 8.9 %; Nucleated Red Blood Cells % 0
[2019-01-22] MEDS: Ferrous Gluconate TAB* 324 MG TAB PO SCH ×3 (06:00→19:52)
[2019-01-22] MEDS: Docusate CAP* 100 MG PO SCH ×4 (06:01→19:52)
[2019-01-22 07:37] LABS: ABS Basophils 0 10^3/ul (0-0.2); ABS Eosinophils 0.3 10^3/ul (0-0.6); ABS Lymphocytes 3.6 10^3/ul (1.0-4.8); ABS Monocytes 0.7 10^3/ul (0-0.8); ABS Neutrophils 9.4 10^3/ul (1.5-7.7); ABS Nucleated RBC 0 10^3/ul; Eosinophil % 1.9 %; Hematocrit 24 % (33-41); Hemoglobin 8.1 g/dL (12.0-16.0); Lymphocyte % 25.8 %; Mean Corpuscular HGB Conc 33 g/dL (31-36); Mean Corpuscular Hemoglobin 29 pg (27-31); Mean Corpuscular Volume 86 fL (80-97); Mean Platelet Volume 8.8 fL (7.4-10.4); Nucleated Red Blood Cells % 0.1; Platelet Count 215 10^3/uL (150-450); Red Blood Count 2.84 10^6 /uL (3.70-4.87); Red Cell Distribution Width 13 % (10.5-15); White Blood Count 14.1 10^3/uL (3.5-10.8)
[2019-01-22] MEDS: Acetaminophen TAB* 325 MG PO PRN (07:58)
[2019-01-22] MEDS: Ibuprofen TAB* 600 MG PO PRN ×2 (07:59→14:44)
[2019-01-23 08:09] VITALS: BP 114/63
[2019-01-23] MEDS: Ferrous Gluconate TAB* 324 MG TAB PO SCH (08:27)
[2019-01-23] MEDS: Ibuprofen TAB* 600 MG PO PRN (08:27)
[2019-01-23] MEDS: Docusate CAP* 100 MG PO SCH (08:28)
== END 2019-01-23 11:20 | disposition home or self-care (01) | DRG 560 ==
LOC: MCHOBOUT 00:18 → MCHOB 00:40
PROVIDERS: ADMIT Midwife; ATTEND Midwife
PROC: 10E0XZZ Delivery of Products of Conception, External Approach (ICD-10-PCS; principal; 2019-01-21)
PROC: 10907ZC Drainage of Amniotic Fluid, Therapeutic from Products of Conception, Via Natural or Artificial Opening (ICD-10-PCS; 2019-01-21)
PROC: 4A1HXCZ Monitoring of Products of Conception, Cardiac Rate, External Approach (ICD-10-PCS; 2019-01-21)
DX: O99.824 Streptococcus B carrier state complicating childbirth (principal); Z37.0 Single live birth; O75.89 Other specified complications of labor and delivery; K64.9 Unspecified hemorrhoids; O72.1 Other immediate postpartum hemorrhage; O90.81 Anemia of the puerperium; O71.82 Other specified trauma to perineum and vulva; Z3A.39 39 weeks gestation of pregnancy
CPT/HCPCS: 36415; 85025; 85027; 86850; 86900; 86901; A9270-GY; J2210; J2540

== ENCOUNTER 2022-07-31 13:12 | Inpatient (IN) ==
[~2022-07-31 13:12] MED LIST: Buffered Lidocaine 1% SYRIN 1 ml INTRADERM ONE; Lactated Ringers 1000 ml BAG 1,000 ML IV ONE; Lactated Ringers 1000 ml BAG 1,000 ML IV SCH; Oxytocin in LR 20,000 MILLI.UNIT/1,000 ML BAG IV SCH
[2022-07-31 14:19] LABS: ABS Basophils 0.1 10^3/ul (0-0.2); ABS Eosinophils 0.1 10^3/ul (0-0.6); ABS Lymphocytes 1.7 10^3/ul (1.0-4.8); ABS Monocytes 0.5 10^3/ul (0-0.8); ABS Neutrophils 10.2 10^3/ul (1.5-7.7); Hematocrit 36 % (35-47); Lymphocyte % 13.7 %; Mean Corpuscular HGB Conc 34 g/dL (31-36); Mean Corpuscular Hemoglobin 29 pg (27-31); Mean Corpuscular Volume 86 fL (80-97); Mean Platelet Volume 9.7 fL (7.4-10.4); Platelet Count 279 10^3/uL (150-450); Red Blood Count 4.16 10^6 /uL (3.70-4.87); Red Cell Distribution Width 13 % (10-15); White Blood Count 12.7 10^3/uL (3.5-10.8)
[2022-07-31 14:36] LABS: Albumin 3.6 g/dL (3.2-5.2); Albumin/Globulin Ratio 1.2 (1-3); Globulin 2.9 g/dL (2-4); Potassium 3.8 mmol/L (3.5-5.0); Total Bilirubin 0.6 mg/dL (0.2-1.0); Total Protein 6.5 g/dL (6.4-8.9); eGFR CKD-EPI 128.5 (>60)
[2022-07-31 14:40] LABS: Urine Benzodiazepine Screen None Detected (None Detect); Urine Cannabinoids Screen None Detected (None Detect); Urine Opiates Screen None Detected (None Detect)
[2022-07-31] MEDS ORDERED: Lidocaine 1% MPF 5 ML VIAL ONE (17:12)
[2022-07-31] MEDS ORDERED: OBEPIDURAL (200 ML) 0 ML EPIDURAL ONE (17:13)
[2022-07-31] MEDS ORDERED: fentaNYL 100 mcg/2 ml 50 MCG/ML VIAL ONE (17:38)
[2022-07-31] MEDS ORDERED: fentaNYL 100 mcg/2 ml 50 MCG/ML VIAL IV SLOW PU ONE (18:46)
[2022-07-31] MEDS ORDERED: Dibucaine 1% OINT 28.35 GM TUBE PR PRN (20:20)
[2022-07-31] MEDS ORDERED: Witch Hazel PAD JAR TOPICAL PRN (20:20)
[2022-07-31] MEDS ORDERED: Lactated Ringers 1000 ml BAG 1,000 ML IV SCH (21:00)
[2022-08-01 06:57] LABS: ABS Basophils 0.1 10^3/ul (0-0.2); ABS Eosinophils 0.1 10^3/ul (0-0.6); ABS Lymphocytes 2.6 10^3/ul (1.0-4.8); ABS Monocytes 0.8 10^3/ul (0-0.8); ABS Neutrophils 13.5 10^3/ul (1.5-7.7); Eosinophil % 0.7 %; Hematocrit 33 % (35-47); Hemoglobin 11.2 g/dL (12.0-16.0); Lymphocyte % 15.1 %; Mean Corpuscular HGB Conc 34 g/dL (31-36); Mean Corpuscular Hemoglobin 29 pg (27-31); Mean Corpuscular Volume 86 fL (80-97); Mean Platelet Volume 9.5 fL (7.4-10.4); Platelet Count 260 10^3/uL (150-450); Red Blood Count 3.87 10^6 /uL (3.70-4.87); Red Cell Distribution Width 13 % (10-15)
[2022-08-01] MEDS ORDERED: Calcium Carb (TUMS) 500 mg CHEW TAB PO PRN (15:18)
[2022-08-01 19:31] VITALS: BP 117/69
== END 2022-08-01 20:22 | disposition home or self-care (01) | DRG 560 ==
LOC: MCHOBOUT 13:12 → MCHOB 13:42
PROVIDERS: ADMIT Midwife; ATTEND Midwife